=== PATIENT | female | born 1985 | race Caucasian/White ===

== ENCOUNTER 2017-05-18 19:28 | Emergency (ER) | payer BC ==
[2017-05-18] MEDS ORDERED: Sodium Chloride 0.9% 1,000 ML IV ONE (19:56)
[2017-05-18] MEDS ORDERED: Sodium Chloride 0.9% 2.5 ML Syringe FLUSH PRN (19:56)
[2017-05-18] MEDS ORDERED: Sodium Chloride 0.9% 10 ML Syringe FLUSH PRN (19:56)
[2017-05-18] MEDS ORDERED: Ketorolac 30 MG/ML SDV IVPUSH ONE (19:56)
--- NOTE | 2017-05-18 19:59 | EDM.PDOC ---
ED HPI GENERAL MEDICAL PROBLEM - General Chief Complaint: Abdominal Pain Stated Complaint: RIGHT SIDE PAIN Time Seen by Provider: 05/18/17 19:45 - History of Present Illness INITIAL COMMENTS - FREE TEXT/NARRATIVE: HISTORY AND PHYSICAL: History of present illness: The patient is a healthy 31-year-old female who presents with a one-week history of right flank pain that started gradually seems to be intensifying despite use of [id number] ibuprofen. Patient has no GI or history and has a history of an IUD denies and has no abdominal surgical history. With the discomfort she says that it is very deep and achy and today it started migrating to her right upper quadrant and it concerned her. She's not had a fever nausea or vomiting and the pain is not associated with food intake. She's been having normal bowel movements without black or bloody stools and no diarrhea. She's had no urinary complaints of frequency dysuria or hematuria and has no history of kidney stones. Patient is very active at work and doesn't recall any specific trauma or injury to the area and she has no cough or upper respiratory symptoms. The pain does not change with deep breaths and she has had no runny nose sore throat or coughing of note. Review of systems: As per history of present illness and below otherwise all systems reviewed and negative. Past medical history: As per history of present illness and as reviewed below otherwise noncontributory. Surgical history: As per history of present illness and as reviewed below otherwise noncontributory. Social history: No reported history of drug or alcohol abuse. Family history: As per history of present illness and as reviewed below otherwise noncontributory. Physical exam: Gen.: Well-developed well-nourished female who is nontoxic and looks uncomfortable with movements. Her vital signs are stable and have been reviewed by me. She is nontoxic appearing. HEENT: Atraumatic, normocephalic, pupils reactive, negative for conjunctival pallor or scleral icterus, mucous membranes tacky, throat clear, neck supple, nontender, trachea midline. Lungs: Clear to auscultation, breath sounds equal bilaterally, chest nontender. There is no posterior rib tenderness on the right Heart: S1S2, regular rate and rhythm no overt murmurs. Abdomen: Soft, nondistended, nontender. On deep palpation I am unable to reproduce any pain on the right side of the abdomen or throughout and there is no rebound or guarding. On palpation of the flank I am also unable to reproduce any pain on palpation Negative for masses or hepatosplenomegaly. Negative for costovertebral tenderness. Pelvis: Stable nontender. Genitourinary: Deferred. Rectal: Deferred. Extremities: Atraumatic, negative for cords or calf pain. Neurovascular unremarkable. Neuro: Awake, alert, oriented. Cranial nerves II through XII unremarkable. Cerebellum unremarkable. Motor and sensory unremarkable throughout. Exam nonfocal. Diagnostics: CBC CMP UA UCG CT scan of the abdomen and pelvis , chest x-ray Therapeutics: IV fluids Toradol Patient states that after the Toradol she did get some relief but now it is wearing off the discomfort is returning. I discussed with her and her at bedside all testing results which indicate no etiology of her discomfort. I will give her tramadol and Norflex for home assuming that this is more external and musculoskeletal and have advised her on close follow-up with her provider in the clinic and reasons to return to the ER. 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 Impression: Right flank pain etiology unclear stable Definitive disposition and diagnosis as appropriate pending reevaluation and review of above. right flank/abdomen Pain Score (Numeric/FACES): 5 - Related Data Allergies Allergy/AdvReac Type Severity Reaction Status Date / Time apple Allergy Hives Verified 05/18/17 19:42 banana Allergy Hives Verified 05/18/17 19:42 diphenhydramine Allergy Hives Verified 05/18/17 19:42 [From Benadryl] morphine Allergy Nausea and Verified 05/18/17 19:42 Vomiting Home Meds: Home Meds . 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: 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 History: Reports: None Neurological History: Reports: None Psychiatric History: Reports: None Endocrine/Metabolic History: Reports: None Hematologic History: Reports: None Immunologic History: Reports: None Oncologic (Cancer) History: Reports: None Dermatologic History: Reports: None - Infectious Disease History Infectious Disease History: Reports: None - Past Surgical History Head Surgeries/Procedures: Reports: None HEENT Surgical History: Reports: Oral Surgery Female Surgical History: Reports: None Social & Family History - Family History Family Medical History: Noncontributory - Tobacco Use Smoking Status *Q: Current Every Day Smoker Years of Tobacco use: 10 Packs/Tins Daily: 0.5 - Caffeine Use Caffeine Use: Reports: Coffee - Recreational Drug Use Recreational Drug Use: No Drug Use in Last 12 Months: No Recreational Drug Type: Reports: Marijuana/Hashish ED ROS GENERAL - Review of Systems Review Of Systems: ROS reveals no pertinent complaints other than HPI. ED EXAM, GENERAL - Physical Exam Exam: See Below (see dictation) Course - Vital Signs Last Recorded V/S: Last Vital Signs Temp 37.5 C 05/18/17 19:42 Pulse 86 05/18/17 19:42 Resp 18 05/18/17 19:42 BP 129/93 H 05/18/17 19:42 Pulse Ox 98 05/18/17 19:42 - Orders/Labs/Meds Orders: Active Orders 24 hr Category Date Time Status Abdomen Pelvis w Cont [CT] Stat Exams 05/18/17 19:56 Taken Chest 1V Frontal [CR] Stat Exams 05/18/17 21:34 Ordered Sodium Chloride 0.9% [Saline Flush] Med 05/18/17 19:56 Active 10 ml FLUSH ASDIRECTED PRN Sodium Chloride 0.9% [Saline Flush] Med 05/18/17 19:56 Active 2.5 ml FLUSH ASDIRECTED PRN Saline Lock Insert [OM.PC] Stat Oth 05/18/17 19:56 Ordered Medication Orders Sodium Chloride (Saline Flush) 10 ml FLUSH ASDIRECTED PRN PRN Reason: Keep Vein Open Sodium Chloride (Saline Flush) 2.5 ml FLUSH ASDIRECTED PRN PRN Reason: Keep Vein Open Labs: Laboratory Tests 05/18/17 05/18/17 05/18/17 Range/Units 19:48 19:48 20:03 WBC 5.61 (4.0-11.0) K/uL RBC 4.97 (4.30-5.90) M/uL Hgb 15.3 (12.0-16.0) g/dL Hct 43.9 (36.0-46.0) % MCV 88.3 (80.0-98.0) fL MCH 30.8 (27.0-32.0) pg MCHC 34.9 (31.0-37.0) g/dL RDW Std Deviation 41.6 (28.0-62.0) fl RDW Coeff of [place]lin 13 (11.0-15.0) % Plt Count 249 (150-400) K/uL MPV 9.40 (7.40-12.00) fL Neut % (Auto) 54.2 (48.0-80.0) % Lymph % (Auto) 35.5 (16.0-40.0) % [place] % (Auto) 7.1 (0.0-15.0) % Eos % (Auto) 2.7 (0.0-7.0) % Baso % (Auto) 0.5 (0.0-1.5) % Neut # (Auto) 3.0 (1.4-5.7) K/uL Lymph # (Auto) 2.0 (0.6-2.4) K/uL [place] # (Auto) 0.4 (0.0-0.8) K/uL Eos # (Auto) 0.2 (0.0-0.7) K/uL Baso # (Auto) 0.0 (0.0-0.1) K/uL Nucleated RBC % 0.0 /100WBC Nucleated RBCs # 0 K/uL Sodium (136-146) mmol/L Potassium (3.5-5.1) mmol/L Chloride (98-110) mmol/L Carbon Dioxide (21-31) mmol/L BUN (6.0-23.0) mg/dL Creatinine (0.6-1.5) mg/dL Est Cr Clr Drug Dosing mL/min Estimated GFR (MDRD) ml/min Glucose (60-110) mg/dL Calcium (8.8-10.8) mg/dL Total Bilirubin (0.1-1.5) mg/dL AST (5-40) IU/L ALT (8-54) IU/L Alkaline Phosphatase (40-150) Total Protein (6.0-8.0) g/dL Albumin (3.5-5.0) g/dL Globulin (2.0-3.5) g/dL Albumin/Globulin Ratio (1.3-2.8) Urine Color YELLOW Urine Appearance CLEAR Urine pH 5.5 (5.0-8.0) Ur Specific [place] 1.025 (1.001-1.035) Urine Protein NEGATIVE (NEGATIVE) mg/dL Urine Glucose (UA) NEGATIVE (NEGATIVE) mg/dL Urine Ketones NEGATIVE (NEGATIVE) mg/dL Urine Occult Blood NEGATIVE (NEGATIVE) Urine Nitrite NEGATIVE (NEGATIVE) Urine Bilirubin NEGATIVE (NEGATIVE) Urine Urobilinogen 0.2 (<2.0) EU/dL Ur Leukocyte Esterase NEGATIVE (NEGATIVE) Urine RBC 0-2 (0-2/HPF) Urine WBC 0-3 (0-5/HPF) Ur Epithelial Cells MODERATE (NONE-FEW) Amorphous Sediment LIGHT (NEGATIVE) Urine Bacteria FEW (NEGATIVE) Urine HCG, Qual NEGATIVE (NEGATIVE) 05/18/17 Range/Units 20:03 WBC (4.0-11.0) K/uL RBC (4.30-5.90) M/uL Hgb (12.0-16.0) g/dL Hct (36.0-46.0) % MCV (80.0-98.0) fL MCH (27.0-32.0) pg MCHC (31.0-37.0) g/dL RDW Std Deviation (28.0-62.0) fl RDW Coeff of [place] (11.0-15.0) % Plt Count (150-400) K/uL MPV (7.40-12.00) fL Neut % (Auto) (48.0-80.0) % Lymph % (Auto) (16.0-40.0) % [place] % (Auto) (0.0-15.0) % Eos % (Auto) (0.0-7.0) % Baso % (Auto) (0.0-1.5) % Neut # (Auto) (1.4-5.7) K/uL Lymph # (Auto) (0.6-2.4) K/uL [place] # (Auto) (0.0-0.8) K/uL Eos # (Auto) (0.0-0.7) K/uL Baso # (Auto) (0.0-0.1) K/uL Nucleated RBC % /100WBC Nucleated RBCs # K/uL Sodium 137 (136-146) mmol/L Potassium 3.9 (3.5-5.1) mmol/L Chloride 104 (98-110) mmol/L Carbon Dioxide 24 (21-31) mmol/L BUN 10 (6.0-23.0) mg/dL Creatinine 0.8 (0.6-1.5) mg/dL Est Cr Clr Drug Dosing 86.37 mL/min Estimated GFR (MDRD) > 60.0 ml/min Glucose 105 (60-110) mg/dL Calcium 9.0 (8.8-10.8) mg/dL Total Bilirubin 0.4 (0.1-1.5) mg/dL AST 20 (5-40) IU/L ALT 22 (8-54) IU/L Alkaline Phosphatase 60 (40-150) Total Protein 7.6 (6.0-8.0) g/dL Albumin 4.5 (3.5-5.0) g/dL Globulin 3.1 (2.0-3.5) g/dL Albumin/Globulin Ratio 1.5 (1.3-2.8) Urine Color Urine Appearance Urine pH (5.0-8.0) Ur Specific [place] (1.001-1.035) Urine Protein (NEGATIVE) mg/dL Urine Glucose (UA) (NEGATIVE) mg/dL Urine Ketones (NEGATIVE) mg/dL Urine Occult Blood (NEGATIVE) Urine Nitrite (NEGATIVE) Urine Bilirubin (NEGATIVE) Urine Urobilinogen (<2.0) EU/dL Ur Leukocyte Esterase (NEGATIVE) Urine RBC (0-2/HPF) Urine WBC (0-5/HPF) Ur Epithelial Cells (NONE-FEW) Amorphous Sediment (NEGATIVE) Urine Bacteria (NEGATIVE) Urine HCG, Qual (NEGATIVE) Meds: Medications Generic Name Dose Route Start Last Admin Trade Name Freq PRN Reason Stop Dose Admin Sodium Chloride 10 ml 05/18/17 19:56 Saline Flush FLUSH ASDIRECTED PRN Keep Vein Open Sodium Chloride 2.5 ml 05/18/17 19:56 Saline Flush FLUSH ASDIRECTED PRN Keep Vein Open Discontinued Medications Generic Name Dose Route Start Last Admin Trade Name Freq PRN Reason Stop Dose Admin Sodium Chloride 1,000 mls @ 999 mls/hr 05/18/17 19:56 05/18/17 20:05 Normal Saline IV 05/18/17 20:56 999 mls/hr STAT ONE Administration Ketorolac Tromethamine 30 mg 05/18/17 19:56 05/18/17 20:05 Toradol IVPUSH 05/18/17 19:57 30 mg ONETIME ONE Administration Departure - Departure Time of Disposition: 21:38 Disposition: Home, Self-Care 01 Condition: Good Clinical Impression: Right flank pain - Discharge Information Referrals: PCP,None [Primary Care Provider] - Forms: ED Department Discharge Additional Instructions: The following information is given to patients seen in the emergency department who are being discharged to home. This information is to outline your options for follow-up care. We provide all patients seen in our emergency department with a follow-up referral. The need for follow-up, as well as the timing and circumstances, are variable depending upon the specifics of your emergency department visit. If you don't have a primary care physician on staff, we will provide you with a referral. We always advise you to contact your personal physician following an emergency department visit to inform them of the circumstance of the visit and for follow-up with them and/or the need for any referrals to a consulting specialist. The emergency department will also refer you to a specialist when appropriate. This referral assures that you have the opportunity for followup care with a specialist. All of these measure are taken in an effort to provide you with optimal care, which includes your followup. Under all circumstances we always encourage you to contact your private physician who remains a resource for coordinating your care. When calling for followup care, please make the office aware that this follow-up is from your recent emergency room visit. If for any reason you are refused follow-up, please contact the [facility] emergency department at and ask to speak to the emergency department charge nurse. [facility] Primary care- [place] [address] Please try to rest and push hydration. Use [id number] Motrin/ibuprofen as well as Tylenol for pain and add the Norflex and tramadol you have been given as needed. Try not to mix the tramadol and Norflex but you can take either of them with Motrin and Tylenol. Apply ice after any activity and use heat as indicated. Please call and follow-up in the clinic in the next few days for further care and reevaluation of these symptoms and return to ER as needed and as discussed - My Orders Last 24 Hours: My Active Orders 05/18/17 19:56 Abdomen Pelvis w Cont [CT] Stat Sodium Chloride 0.9% [Saline Flush] 10 ml FLUSH ASDIRECTED PRN Sodium Chloride 0.9% [Saline Flush] 2.5 ml FLUSH ASDIRECTED PRN Saline Lock Insert [OM.PC] Stat 05/18/17 21:34 Chest 1V Frontal [CR] Stat - Assessment/Plan Last 24 Hours: My Active Orders 05/18/17 19:56 Abdomen Pelvis w Cont [CT] Stat Sodium Chloride 0.9% [Saline Flush] 10 ml FLUSH ASDIRECTED PRN Sodium Chloride 0.9% [Saline Flush] 2.5 ml FLUSH ASDIRECTED PRN Saline Lock Insert [OM.PC] Stat 05/18/17 21:34 Chest 1V Frontal [CR] Stat
[2017-05-18 20:41] LABS: CHLORIDE,CL 104 mmol/L (98-110); SODIUM,NA 137 mmol/L (136-146)
[2017-05-18 22:22] VITALS: BP 110/78
[2017-05-18] MEDS ORDERED: Iopamidol 755 MG/ML 500 ML Multipack Bottle IVPUSH STA (23:14)
--- NOTE | 2017-05-20 14:20 | CT ---
EXAM DATE: 05/18/17 PATIENT'S AGE: 31 Patient: FRANK RAHMAN Facility: [place], [place] Site . Site : 1985 Study: CT Abdomen/Pelvis [id number] 9:08:04 PM Ordering Physician: Qamar Paredes Final Report: INDICATION: Right-sided abdominal pain and nausea for last 1 week. Comparison: None. Technique: CT abdomen and pelvis with intravenous contrast; no oral contrast; coronal and sagittal reformats. Findings: No abnormal intra pulmonary nodular densities through the lung bases. No evidence of pleural effusion. Normal size cardiac silhouette without any evidence of pericardial effusion. No focal hepatic or splenic pathology. No pancreatic pathology. Gallbladder is unremarkable. No adrenal pathology. Symmetric perfusion of both the kidneys without any obstructive uropathy or perinephric pathology. No retroperitoneal lymphadenopathy. No evidence of abdominal or pelvic ascites. No evidence of intestinal obstruction. No pneumoperitoneum. Normal appendix. Intrauterine contraceptive device in place. No adnexal pathology. Impression : No kidneys stones or obstructive uropathy. 1. Normal appendix. 2. No evidence of abdominal or pelvic ascites. 3. Negative CT of the abdomen and pelvis with intravenous contrast otherwise. Please note that all CT scans at this facility use dose modulation, iterative reconstruction, and/or weight-based dosing when appropriate to reduce radiation dose to as low as reasonably achievable. Dictated by Ganga Glass MD @ May 18 2017 9:24PM (Electronic Signature) Report Signed by Proxy. [facility]
--- NOTE | 2017-05-20 14:22 | CR ---
EXAM DATE: 05/18/17 PATIENT'S AGE: 31 Patient: FRANK RAHMAN Facility: [place], [place] Site . Site : 1985 Study: XRay Chest [id number] 9:47:32 PM Ordering Physician: Qamar Paredes Final Report: INDICATION: pain/sob TECHNIQUE: Chest 1 view. COMPARISON: None. FINDINGS: Cardiovascular and mediastinum: Heart size and vasculature are normal in caliber and appearance. Mediastinum is within normal limits. Lungs and pleural space: Lungs are clear. No sign of infiltrate or mass. No sign of pleural effusion. No pneumothorax. Bones and soft tissues: No significant findings. IMPRESSION: Unremarkable chest. Dictated by: Adrian Garcia MD @ 05/18/2017 22:26:26 (Electronic Signature) Report Signed by Proxy. [facility]
== END 2017-05-18 22:10 | disposition home or self-care (01) ==
LOC: MW.ED 19:28
DX: R10.9 Unspecified abdominal pain (principal); F17.210 Nicotine dependence, cigarettes, uncomplicated; Z88.5 Allergy status to narcotic agent; Z88.8 Allergy status to other drugs, medicaments and biological substances
CPT/HCPCS: 71010; 74177; 80053; 81001; 81025; 85025; 96361; 96374; 99284; J1885; J7040; Q9967

== ENCOUNTER 2017-10-23 10:32 | Day surgery (SDC) | payer BC, SELFPAY ==
[~2017-10-23 10:32] MED LIST: Acetaminophen/HYDROcodone 325-5 MG Tab PO PRN; Bupivacaine 0.25%/EPINEPHrine 1:200,000 10 ML SDV INJECT ONE; Dexamethasone 4 MG/ML 5 ML MDV ONE; EPINEPHrine 1 MG/ML SDV ONE; Gentamicin 40 MG/ML 2 ML Vial ONE; Lactated Ringers 1,000 ML IV SCH; Lidocaine 2% 5 ML SDV ONE; Midazolam 1 MG/ML 2 ML SDV ONE; Ondansetron 4 MG/2 ML SDV ONE; Propofol 200 MG/20 ML SDV ONE; Rocuronium 10 MG/ML 10 ML Syringe ONE; ceFAZolin 2 GM in Premix Bag 1 BAG IV ONE; diphenhydrAMINE 50 MG/ML SDV ONE; fentaNYL 100 MCG/2 ML SDV ONE
[2017-10-23] MEDS ORDERED: Cyclobenzaprine 5 MG Tab PO ONE (10:33)
[2017-10-23] MEDS ORDERED: ceFAZolin 1 GM Vial ONE ×2 (10:33→10:53)
[2017-10-23] MEDS ORDERED: HYDROmorphone 2 MG/ML SDV ONE (10:57)
[2017-10-23] MEDS ORDERED: Bupivacaine 25%/EPINEPHrine/PF 30 ML ONE (10:59)
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
[2017-10-23] MEDS ORDERED: ePHEDrine 50 MG/ML SDV ONE (12:23)
--- NOTE | 2017-10-23 13:48 | PCM.OPNOTE ---
- General Post-Op/Procedure Note Date of Surgery/Procedure: 10/23/17 Operative Procedure(s): bilateral silicone submuscular breast augmentation Pre Op Diagnosis: cosmetic Post-Op Diagnosis: Same Anesthesia Technique: General ET Tube, Local Primary Surgeon: Roseanna Luciano Complications: None Condition: Good Free Text/Narrative:: Left SN [id number] Ref [facility]-405 Right SN [id number] Ref [facility]-405
--- NOTE | 2017-10-23 15:51 | OR ---
SURGEON: LULU HEBERT MD DATE OF PROCEDURE: 10/23/2017 PREOPERATIVE DIAGNOSIS: Cosmetic surgery. POSTOPERATIVE DIAGNOSIS: Cosmetic surgery. PROCEDURE: Bilateral silicone submuscular breast augmentation. ANESTHESIA: General via ET tube with local. INDICATIONS: Ms. Hernanedz is a 32-year-old female, here for bilateral breast augmentation. Risks and benefits of submuscular breast augmentation were discussed with her, and she was in agreement to proceed. She chose 405 mL implants SRM style. Risks and benefits were reviewed again today and informed consent was previously obtained. Risks were including, but not limited to, bleeding, infection, damage to underlying or overlying structures, possible need for future interventions, and possible scarring. PROCEDURE IN DETAIL: After informed consent was obtained and placed on the chart, the patient was brought to the operating theater and laid in supine position. After adequate general anesthesia was obtained, the area was prepped and draped and a time-out was completed to confirm side and site. Attention was then paid to the bilateral breasts border markings and planning of the inframammary fold incisions 7.6 cm below the nipple-areolar complexes to hide in the crease. Once these were marked, for 5 cm length incisions, dissection was undertaken using a #15 blade through the skin and Bovie electrocautery until dissection of the muscle and then lighted retractor and extended Bovie for dissection of the muscle itself. First, the muscle was transected inferiorly and then elevated from the chest wall. Care was taken not to over-dissect laterally or medially. Once the pocket was developed, the area was copiously irrigated and epinephrine-soaked laps were placed. While these were allowed to sit, a symmetric dissection was carried on the other side. Once the other side was dissected and epinephrine-soaked laps were placed, we moved back to the right side and removed the epinephrine-soaked laps, obtained meticulous hemostasis and used copious amounts of triple antibiotic solution. We then undertook suturing the medial and lateral inferior borders to prevent migration using a 3-0 PDS suture in a [id number]-[id number] fashion to the chest wall and Pauline fascia to prevent over dissection from swelling and implant malposition. Five [id number] sutures were placed along the inferomedial and inferolateral border. Once this was completed, the area was again irrigated and evaluated for hemostasis. Attention was then paid to Carlos Eduardo retraction of the muscle and a no-touch technique for placement of the right breast implant serial #[id number], reference #SRM-405. Once this was completed, the skin was then closed using deep 3-0 Monocryl stitches for the fascia, deep 3-0 Monocryl stitches for the dermis and a running 4-0 subcuticular for the skin. Attention was then paid to the left breast and the same hemostasis and 3-0 PDS inferolateral and inferomedial border fixation was completed. The area was copiously irrigated again with antibiotic solution and then using a no-touch technique and Milligan funnel, the left serial #[id number], reference #SRM-405 implant was placed. This was then again closed using 3-0 Monocryl for the deep fascia and dermis and a running 4-0 subcuticular for the skin. Wounds were dressed with Steri-Strips. The patient was sat up and adequate symmetry was appreciated. There was slightly more ptosis on the left breast and slightly more muscle spasm here. The muscles again adjusted slightly and appeared to be in better position. Fluffs and Steri-Strips were placed over the incision and a compression bra was placed. The patient tolerated this well. All counts and needles were correct at the end of the case. FOLLOWUP INSTRUCTIONS: The patient will see us tomorrow in clinic, sooner if any problems, questions, or concerns and was given a prescription for [place], Zofran, and Flexeril. All questions answered and discharged home in stable condition. [place] / IMAN /[id number]
--- NOTE | 2017-10-23 17:55 | PCM48HPAN ---
Post Anesthesia Note - EVALUATION WITHIN 48HRS OF ANESTHETIC Vital Signs in Normal Range: Yes Patient Participated in Evaluation: Yes Respiratory Function Stable: Yes Airway Patent: Yes Cardiovascular Function Stable: Yes Hydration Status Stable: Yes Pain Control Satisfactory: Yes Nausea and Vomiting Control Satisfactory: Yes Mental Status Recovered: Yes Resp Rate: 17 - COMMENTS/OBSERVATIONS Free Text/Narrative:: no anesthesia problems
[2017-10-23 18:10] VITALS: BP 120/64
== END 2017-10-23 15:45 | disposition home or self-care (01) ==
LOC: MW.SDS 10:32
PROVIDERS: ATTEND Plastic Surgery
DX: Z41.1 Encounter for cosmetic surgery (principal); J30.2 Other seasonal allergic rhinitis; Z87.891 Personal history of nicotine dependence; Z79.899 Other long term (current) drug therapy; Z88.5 Allergy status to narcotic agent; Z88.8 Allergy status to other drugs, medicaments and biological substances; Z91.018 Allergy to other foods
CPT/HCPCS: 19325; 81025; A9270; C1789; J0171; J0690; J1100; J1170; J1580; J2250; J2405; J3010; J7120; J1200; J2704